=== PATIENT | male | born 1995 | race Hispanic/Latino ===

== ENCOUNTER 2023-07-12 20:48 | Observation (INO) | payer SELFPAY ==
[2023-07-12] MEDS ORDERED: Ketorolac Tromethamine 30 MG (1 mL) VIAL ONE (22:11)
[2023-07-12] MEDS ORDERED: Famotidine/PF 20 mg/2ml Vial ONE (22:11)
[2023-07-12] MEDS ORDERED: Ondansetron PF 4 MG/2 ML Vial ONE (22:11)
[2023-07-12 22:50] LABS: Hematocrit 45.8 % (42.0-52.0); Hemoglobin 16.6 g/dL (14.0-18.0); Mean Corpuscular HGB CONC 36.2 g/dL (32.0-36.0); Mean Corpuscular Hemoglobin 32.7 pg (27.0-31.0); Mean Corpuscular Volume 90.3 fL (78.0-98.0); Mean Platelet Volume 10.4 fL (7.4-10.4); Platelet Count 328 10x3/uL (130-400); RBC Distribution Width 12.1 % (11.5-14.5); Red Blood Cell (RBC) Count 5.07 mill/uL (4.70-6.10)
[2023-07-12 23:09] LABS: ALT (SGPT) 20 U/L (8-55); AST (SGOT) 22 U/L (5-34); Albumin 6.1 g/dL (3.5-5.0); Alkaline Phosphatase 88 U/L (40-110); Anion Gap 26 mmol/L (10-20); BUN (Urea Nitrogen) 21 mg/dL (8.9-20.6); Bilirubin, Total 0.9 mg/dL (0.2-1.2); CK (CPK) 284 U/L (30-200); Calc. Creatinine Clearance 0 mL/min (70-130); Calcium 11.7 mg/dL (7.8-10.44); Carbon Dioxide 21 mmol/L (22-29); Chloride 98 mmol/L (98-107); Estimated GFR 27; Globulin 4.1 g/dL (2.4-3.5); Glucose 132 mg/dL (70-105); Lipase 20 U/L (8-78); Potassium 4.7 mmol/L (3.5-5.1); Protein, Total 10.2 g/dL (6.0-8.3); Sodium 140 mmol/L (136-145)
[2023-07-12 23:22] LABS: Lymphocytes 5 % (21-51); Monocytes 3 % (0-10); Neutrophil 92 % (42-75); Platelet Adequacy Comment Platelets Normal; RBC Morphology Within Normal Limits
[2023-07-12 23:38] LABS: Influenza A by NAA Not Detected (NotDetected); Influenza B by NAA Not Detected (NotDetected); SARS-CoV-2 NAA Rapid Test Not Detected (NotDetected)
[2023-07-13] MEDS ORDERED: Ondansetron ODT 4 MG TAB SL PRN (00:15)
[2023-07-13] MEDS ORDERED: Ondansetron PF 4 MG/2 ML Vial IVP PRN ×2 (00:15→00:23)
[2023-07-13] MEDS ORDERED: Ondansetron ODT 4 MG TAB PO PRN (00:23)
[2023-07-13] MEDS ORDERED: Acetaminophen 325 MG TAB PO PRN (00:23)
[2023-07-13 00:57] VITALS: BMI 24.2
[2023-07-13] MEDS: Sodium Chloride 0.9% 1,000 ML IV SCH (01:15)
[2023-07-13 05:38] LABS: #Basophils 0.05 10x3/uL (0.0-0.2); #Eosinphils Less than 0.03 10x3/uL (0.0-0.7); %Basophils 0.3 % (0.0-1.0); %Eosinophils 0.1 % (0.0-10.0); %Lymphocytes 16.1 % (21.0-51.0); %Monocytes 9.2 % (0.0-10.0); %Neutrophils 73.8 % (42.0-75.0); Hemoglobin 12.6 g/dL (14.0-18.0); Mean Corpuscular Hemoglobin 32.3 pg (27.0-31.0); Mean Corpuscular Volume 92.3 fL (78.0-98.0); Platelet Count 250 10x3/uL (130-400); RBC Distribution Width 12.6 % (11.5-14.5)
[2023-07-13 05:46] LABS: Bilirubin Negative (Negative); Blood, Urine Negative (Negative); Clarity Clear (Clear); Glucose, Urine (Dipstick) Normal (Negative); Ketone, Urine Negative (Negative); Leukocyte Negative Leu/uL (Negative); Nitrite Negative (Negative); Protein, Urine (Dipstick) 30 mg/dL (Neg-Trace); Urobilinogen Normal mg/dL (Less than 2); WBC/HPF 0-3 HPF (0-3)
[2023-07-13 05:47] LABS: Bacteria/HPF None Seen HPF (None Seen); CAUTI Indications for Culture Dysuria,urgency,freq; Squamous Epithelial None Seen HPF (0-3)
[2023-07-13 05:49] LABS: Specific Gravity, Urine 1.048 (1.002-1.036)
[2023-07-13 05:50] LABS: Urine Culture Reflex No No
[2023-07-13 05:53] LABS: Amphetamine Not Detected (NotDetected); Barbiturates Screen Not Detected (NotDetected); Benzodiazepine Screen Not Detected (NotDetected); Cocaine Metabolite Screen Not Detected (NotDetected); Methadone Not Detected (NotDetected); Methamphetamine Not Detected (NotDetected); Opiate Screen Not Detected (NotDetected); Oxycodone Screen Not Detected (NotDetected); Phencyclidine (PCP) Not Detected (NotDetected); THC/Cannabinoid Screen Not Detected (NotDetected); Tricyclic Screen Not Detected (NotDetected)
[2023-07-13 06:07] LABS: Anion Gap 14 mmol/L (10-20); BUN (Urea Nitrogen) 20 mg/dL (8.9-20.6); Calc. Creatinine Clearance 64 mL/min (70-130); Calcium 9.1 mg/dL (7.8-10.44); Carbon Dioxide 23 mmol/L (22-29); Chloride 107 mmol/L (98-107); Estimated GFR 71; Glucose 113 mg/dL (70-105); Potassium 4.1 mmol/L (3.5-5.1); Sodium 140 mmol/L (136-145)
[2023-07-13] MEDS: Famotidine 20 MG TAB PO SCH (07:51)
[2023-07-13 07:55] LABS: Acetaminophen Less than 10 mcg/mL (10.0-30.0); Alcohol Less than 10.0 mg/dL (Less than 10); Salicylate Less than 8.0 mg/dL (15.0-30.0)
[2023-07-13 08:17] VITALS: TEMP 98
[2023-07-13 11:57] VITALS: BP 115/64
== END 2023-07-13 16:01 | disposition home or self-care (01) ==
LOC: ERS 20:48 → EDBD 07-13 00:01 → T4-B 07-13 00:01
PROVIDERS: ADMIT Internal Medicine; ATTEND Family Medicine
DX: N17.9 Acute kidney failure, unspecified (principal); D72.829 Elevated white blood cell count, unspecified; K76.0 Fatty (change of) liver, not elsewhere classified
CPT/HCPCS: 36415; 71045; 74177; 80048; 80053; 80306; 80307; 81001; 82550; 83605; 83690; 84484; 85025; 87040; 87081; 87430; 93005; 96361; 96374; 96375; G0378; J1885; J2405; J7050; S0028